=== PATIENT | female | born 1980 | race African-American/Black ===

== ENCOUNTER 2024-11-05 20:49 | Emergency (ER) | payer MEDICAID, SELFPAY ==
[2024-11-05] MEDS ORDERED: Ibuprofen 200 MG TAB ONE (21:50)
== END 2024-11-05 22:02 | disposition home or self-care (01) ==
LOC: ERS 20:49
DX: B34.9 Viral infection, unspecified (principal); Z87.891 Personal history of nicotine dependence
CPT/HCPCS: 87428; 99283